=== PATIENT | male | born 1980 | race Two or more races ===

== ENCOUNTER 2025-03-08 11:27 | Emergency (ER) | payer SELFPAY ==
--- NOTE | 2025-03-08 12:09 | XR_ITS ---
Examination: Left hand fourth digit 2 views TECHNIQUE: AP lateral left hand fourth digit 2 views Exam date and time: March 08, 2025, 1328 hours INDICATIONS: Injury to the fourth digit including laceration today with fourth digit pain FINDINGS: Acute fractures ungual tuft tip distal phalanx fourth digit No significant displacement. No dislocation. No foreign body IMPRESSION: Acute fractures ungual tuft tip distal phalanx fourth digit
--- NOTE | 2025-03-08 12:10 | PD.EDWOUND ---
ED Wound/Laceration-RME/HPI General Chief Complaint: Wound/Laceration Stated Complaint: LEFT FINGER LACERATION Time Seen by Provider: 03/08/25 11:46 Arrival date/time: 03/08/25 11:27 RME / HPI RME / HPI narrative: 45-year-old male patient came in for evaluation regarding lacerations of the left fourth finger. Incident happened few minutes prior to ER visit while working, posting the cow inside, the cow back up and his finger was pinned down with a metal bar. Patient sustained 3 cm gaping laceration left pinky finger palmar aspect. Tetanus vaccination is 3 years old. Able to bend and extend the finger without any limitation. Related Data Previous Rx's ?Medication ?Instructions ?Recorded ibuprofen 800 mg tablet 800 mg PO TID PRN pain #30 tabs 04/17/19 sumatriptan succinate 25 mg tablet 25 mg PO Q2H PRN migraine headache 10/16/19 (Imitrex) #7 tabs tramadol 37.5 mg-acetaminophen 325 1 tab PO TID PRN pain #15 tabs 08/31/21 mg tablet ibuprofen 800 mg tablet 800 mg PO TID PRN pain #30 tabs 03/08/25 sulfamethoxazole 800 1 tab PO BID #14 tabs 03/08/25 mg-trimethoprim 160 mg tablet (Bactrim DS) Allergies Allergy/AdvReac Type Severity Reaction Status Date / Time Penicillins Allergy Mild RASH Verified 08/31/21 18:05 Review of Systems Review of Systems Narrative Review of Systems: Review of system reviewed and within normal limits except mentioned in HPI ED Exam Narrative Physical exam: VITAL SIGNS: Reviewed. GENERAL APPEARANCE: Alert and interactive, follows commands, no acute distress, HEAD AND FACE: Non-traumatic. ENT: PERRL, pink conjunctivitis, eyelid no trauma, Mucous membrane moist. NECK: Supple, nontender, no nuchal rigidity. RECTAL: Deferred. GENITAL: Deferred. NEUROLOGICAL: Gross motor function intact sensory function intact, Appropriate for age. MUSCULOSKELETAL: low back nontender, full range of motion. EXTREMITIES: +3 cm laceration, left ring finger, palmar aspect full range of motion. SKIN: Color pink, dry, no rash, no lacerations, no abrasions, no contusions. LYMPHATICS: Deferred. Course Quality Measures none Orders Category Date Time Status Irrigate Wound NOW Care 03/08/25 12:10 Active Set Up Suture Tray STAT Care 03/08/25 12:10 Active XR finger LT min 2V Stat Exams 03/08/25 12:09 Completed Amoxicillin/Pot Clav 875 [Augmentin 875] Med 03/08/25 12:07 Discontinued 1 tab PO X1 ONE Ibuprofen Tab [Motrin Tab] Med 03/08/25 12:09 Discontinued 800 mg PO X1 ONE Lidocaine 1% 20 ml [Xylocaine 1% 20 ML] Med 03/08/25 12:07 Discontinued 10 ml INFL X1 ONE Trimethoprim/Sulfa 160/800 Ds [Bactrim Ds] Med 03/08/25 12:32 Discontinued 1 tab PO X1 ONE Vital Signs Vital signs: Vital Signs Temperature 98.9 F 03/08/25 12:11 Pulse Rate 72 03/08/25 12:11 Respiratory Rate 18 03/08/25 12:11 Blood Pressure 130/89 H 03/08/25 12:11 Pulse Oximetry (%) 97 03/08/25 12:11 Oxygen Delivery Method Room Air 03/08/25 12:11 Procedures -ED Laceration Laceration 1: Site: other (Ring finger left) Size (cm): 3 Description: linear Depth: simple, single layer Local Anesthetic: lidocaine 1% Amount of anesthesia used (mL): 5 Pre-repair: wound explored, irrigated extensively and deep structures intact Skin layer closed with: nylon Size (cm): 5-0 Number of sutures: 5 Technique: simple, interrupted Wound / Laceration MDM Narrative MDM Narrative:: 45-year-old male patient came in for evaluation regarding lacerations of the left fourth finger. Incident happened few minutes prior to ER visit while working, posting the cow inside, the cow back up and his finger was pinned down with a metal bar. Patient sustained 3 cm gaping laceration left pinky finger palmar aspect. Tetanus vaccination is 3 years old. Able to bend and extend the finger without any limitation. X-ray of the finger showed tuft fracture, otherwise unremarkable Repair and suturing was done by me see procedure note Wound cleansed with NS more than 1 L, Betadine cleanser applied. Patient was given Bactrim and Motrin Patient appears nontoxic and hemodynamically stable. Patient discharged home and instructed to follow-up with primary care provider in 24 to 48 hours. Instructed to return to the emergency department immediately if worsening of symptoms Patient data External records reviewed:: None Clinical information provided by:: patient Social determinants that could affect healthcare access:: none Patient has the following chronic illnesses:: None How is presenting disease/condition affected by chronic disease/condition?: no chronic disease Evaluation data The following diagnostics were reviewed and interpreted by me:: radiology exam(s) Lab and/or radiology exams considered but not ordered:: None Interpretation Summary: See results MDM Medications / Prescriptions Medications or Prescriptions considered but not ordered:: None Medication administrations:: Medication Administration History Discontinued Medications Amoxicillin/Clavulanate Potassium (Amoxicillin/Pot Clav 875 Tablet) 1 tab PO X1 ONE Stop: 03/08/25 12:08 Last Admin: 03/08/25 12:31 Dose: Not Given Documented By: [facility] Non-Admin Reason: Contraindicated Ibuprofen (Ibuprofen Tab 400 Mg Tablet) 800 mg PO X1 ONE Stop: 03/08/25 12:10 Last Admin: 03/08/25 12:35 Dose: 800 mg Documented By: DMITRIY Lidocaine HCl (Lidocaine Hcl 1% 20 Ml Vial) 10 ml INFL X1 ONE Stop: 03/08/25 12:08 Last Admin: 03/08/25 12:36 Dose: 10 ml Documented By: DMITRIY Trimethoprim/Sulfamethoxazole (Trimethoprim/Sulfa 160/800 Ds Tablet) 1 tab PO X1 ONE Stop: 03/08/25 12:33 Last Admin: 03/08/25 12:38 Dose: 1 tab Documented By: DMITRIY Bactrim, Motrin Consultations Consultation(s) initiated? (list below): No Diagnosis Wound Differential Diagnosis: laceration, abrasion and avulsion of skin Most likely diagnosis given after review of the tests above:: Finger laceration, tuft fracture finger Admission Indicated Admission indicated?: not indicated Explain why admission is indicated or not indicated:: Stable Admission Request Was there a request for admission?: No Disposition Plan Disposition Plan: Discharge Discharge Attestation Discharge Attestation: The patient and all family members were given an opportunity to ask questions and understood the discharge instructions. Discharge instructions specifically effects, indications for sooner follow up or return to the emergency department, and the expected course of current diagnosis. Patient condition: Stable Discharge Plan Plan Patient Disposition: HOME (Self Care) Discharge Disposition comment: stable Prescriptions/Referrals Prescriptions/Med Rec: New sulfamethoxazole-trimethoprim [Bactrim DS] 800-160 mg tablet 1 tab PO BID Qty: 14 0RF ibuprofen 800 mg tablet 800 mg PO TID PRN (Reason: pain) Qty: 30 0RF No Action ibuprofen 800 mg tablet 800 mg PO TID PRN (Reason: pain) Qty: 30 0RF tramadol-acetaminophen 37.5-325 mg tablet 1 tab PO TID PRN (Reason: pain) Qty: 15 0RF sumatriptan succinate [Imitrex] 25 mg tablet 25 mg PO Q2H PRN (Reason: migraine headache) Qty: 7 0RF Rx Instructions: until response; not to exceed 8 doses in a 24 hour period Referrals: Sunday Crawford MD [Primary Care Provider] - In 1 week Problem List Clinical Impression: Finger laceration, Closed fracture of tuft of distal phalanx of finger Patient/Caregiver Discharge Instructions Discharge Activity: activity as tolerated Education Materials: ED Laceration: All Closures Additional Instructions: Thank you for the opportunity for serving you today. You are stable for discharged . You are advised to: Follow-up with your Worker's Comp. in 1 to 2 days Return to ED for worsening of symptoms Increase oral fluids Take medication as prescribed Daily dressing with Neosporin as needed For removal of sutures in 10 days Print Language: Turkish Stand Alone Forms: Radha Award Info., Patient Portal Info Letter GUERO/MAVIS Supervising Physician GUERO/MAVIS Supervising Physician: MD Nakia
[2025-03-08 12:11] VITALS: BP 130/89; PULSE 72; RESP 18; TEMP 37.2; O2SAT 97; BMI 30.3
[2025-03-08] MEDS: IBUPROFEN TAB 400 MG TABLET 800 MG PO (12:35)
[2025-03-08] MEDS: LIDOCAINE HCL 1% 20 ML VIAL 10 ML INFL (12:36)
[2025-03-08] MEDS: TRIMETHOPRIM/SULFA 160/800 DS TABLET 1 TAB PO (12:38)
--- NOTE | 2025-03-08 12:47 | PC.NURSE ---
IRRIGATED LACERATION TO LEFT 3RD FINGER WITH 100 ML'S NS
== END 2025-03-08 13:30 | disposition home or self-care (01) ==
PROVIDERS: Emergency Provider Emergency Medicine; PCP Family Medicine
DX: S62.665A Nondisplaced fracture of distal phalanx of left ring finger, initial encounter for closed fracture (principal); S61.215A Laceration without foreign body of left ring finger without damage to nail, initial encounter; W23.1XXA Caught, crushed, jammed, or pinched between stationary objects, initial encounter; Y93.K9 Activity, other involving animal care; Y92.79 Other farm location as the place of occurrence of the external cause; Y99.0 Civilian activity done for income or pay
CPT/HCPCS: 12002; 73140; 99283; J3490; A9270